=== PATIENT | female | born 1975 | race African-American/Black ===

== ENCOUNTER 2019-01-11 03:39 | Inpatient (IN) ==
--- NOTE | 2019-01-06 17:23 | EKG Report ---
Test Performed on : 01/06/2019 5:17:45 PM Test Reason : PAT Blood Pressure : / mmHG Vent. Rate : 064 BPM Atrial Rate : 064 BPM P-R Int : 142 ms QRS Dur : 084 ms QT Int : 376 ms P-R-T Axes : 063 084 059 degrees QTc Int : 387 ms Normal sinus rhythm. Normal ECG No previous ECGs available Unconfirmed Result
[2019-01-06 17:40] LABS: BASO# 0.01 X1000 (0.0-0.2); BASO% 0.3 % (0.0-0.8); EOS# 0.04 X1000 (0.0-0.7); EOS% 1.3 % (0.0-10.0); HEMATOCRIT 33.3 % (37.0-47.0); HEMOGLOBIN 10.8 g/dL (12.0-16.0); LYMPH# 1.08 X1000 (1.2-3.4); MCH 29.6 PG (27-31); MCHC 32.4 g/dL (33-37); MCV 91.2 FL (81-99); MONO# 0.28 X1000 (0.11-0.59); MONO% 9.3 % (1.7-9.3); MPV 9.4 FL (7.4-10.4); NEUT# 1.59 X1000 (1.4-6.5); NEUT% 53.1 % (42.2-75.2); PLT 273 X1000 (130-400); RBC 3.65 XMIL (4.2-5.4); RDW 15.3 % (11.5-14.5)
[2019-01-06 17:49] LABS: INR 1.1; PROTIME 14.3 Seconds (11.0-16.0)
[2019-01-06 17:50] LABS: PTT 30.6 Seconds (22.3-41.8)
[2019-01-06 17:54] LABS: HEMOGLOBIN A1C 5.1 % (4.8-6.0)
[2019-01-06 17:54] LABS: URINE SOURCE CLEAN CATCH
[2019-01-06 18:05] LABS: AGAP 12; ALBUMIN 4.4 g/dL (3.5-5.0); BUN 9 mg/dL (8-22); CALCIUM 9.4 mg/dL (8.8-10.2); CHLORIDE 106 mmol/L (98-107); COSMO 281; CREATININE 0.7 mg/dL (0.5-0.9); ESTIMATED GFR > 60; GLUCOSE 88 mg/dL (70-104); POTASSIUM 3.6 mmol/L (3.5-5.1); SODIUM 142 mmol/L (136-145); TCO2 24 mmol/L (25-35)
[2019-01-06 18:30] LABS: BILIRUBIN URINE NEGATIVE (NEGATIVE); BLOOD URINE NEGATIVE (NEGATIVE); COLOR YELLOW; GLUCOSE URINE NEGATIVE (NEGATIVE); KETONE URINE 40 mg/dL (NEGATIVE); LEUKOCYTES URINE NEGATIVE (NEGATIVE); NITRITE URINE NEGATIVE (NEGATIVE); PH URINE 7.5; PROTEIN URINE TRACE mg/dL (NEGATIVE); SP GRAVITY URINE 1.024; TURBIDITY URINE CLEAR (CLEAR); UROBILINOGEN URINE 3 mg/dL (NORMAL)
[2019-01-06 18:33] LABS: UR EPITHELIAL CELLS <10 /HPF (<10); URINE BACTERIA NEGATIVE /HPF; URINE RBC <10 /HPF (<10); URINE WBC <10 /HPF (<10)
[2019-01-06 18:34] LABS: RA TEST < 10 IU/mL (0-14); URIC ACID 2.6 mg/dL (2.4-5.7)
[2019-01-11] MEDS ORDERED: COLACE ONE (05:54)
[2019-01-11] MEDS ORDERED: PEPCID ONE (05:54)
[2019-01-11] MEDS ORDERED: LYRICA ONE (05:54)
[2019-01-11] MEDS ORDERED: REGLAN ONE (05:54)
[2019-01-11] MEDS ORDERED: CELEBREX ONE (05:55)
[2019-01-11] MEDS ORDERED: LR 1,000 ML ONE (05:55)
[2019-01-11] MEDS ORDERED: KEFZOL 1 GM/D5W 1 GM/50 ML IVPB ONE (05:55)
[2019-01-11] MEDS ORDERED: DIPRIVAN 1% ONE (06:31)
[2019-01-11] MEDS ORDERED: FENTANYL ONE (06:32)
[2019-01-11] MEDS ORDERED: OFIRMEV 1000 MG/ISOTONIC SOLN 1,000 MG/100 ML BOTTLE ONE (06:37)
[2019-01-11] MEDS ORDERED: TORADOL ONE (06:37)
[2019-01-11] MEDS ORDERED: DURAMORPH ONE (06:37)
[2019-01-11] MEDS ORDERED: EXPAREL 1.3% ONE (06:37)
[2019-01-11] MEDS ORDERED: SODIUM CHLORIDE 0.9% 10 ML ONE (06:37)
[2019-01-11] MEDS ORDERED: NORCURON ONE (06:37)
[2019-01-11] MEDS ORDERED: XYLOCAINE-MPF 2% ONE (06:37)
[2019-01-11] MEDS ORDERED: CYKLOKAPRON 1,000 MG/NS 1,000 MG/100 ML IVPB ONE (06:37)
[2019-01-11] MEDS ORDERED: MARCAINE 0.25% PF ONE (06:37)
[2019-01-11] MEDS ORDERED: SODIUM CHLORIDE 0.9% ONE (06:37)
[2019-01-11] MEDS ORDERED: DECADRON ONE (06:37)
[2019-01-11] MEDS ORDERED: ZOFRAN ONE (06:37)
[2019-01-11] MEDS ORDERED: QUELICIN (DOSE) ONE (06:37)
[2019-01-11] MEDS ORDERED: XYLOCAINE 2% JELLY ONE ×2 (06:38→07:55)
[2019-01-11 08:35] LABS: URINE SOURCE CATH
[2019-01-11 08:40] LABS: BILIRUBIN URINE NEGATIVE (NEGATIVE); BLOOD URINE NEGATIVE (NEGATIVE); COLOR STRAW; GLUCOSE URINE NEGATIVE (NEGATIVE); KETONE URINE NEGATIVE (NEGATIVE); LEUKOCYTES URINE NEGATIVE (NEGATIVE); NITRITE URINE NEGATIVE (NEGATIVE); PH URINE 6.5; PROTEIN URINE NEGATIVE (NEGATIVE); SP GRAVITY URINE 1.004; TURBIDITY URINE CLEAR (CLEAR); UR EPITHELIAL CELLS <10 /HPF (<10); URINE BACTERIA NEGATIVE /HPF; URINE RBC <10 /HPF (<10); URINE WBC <10 /HPF (<10); UROBILINOGEN URINE NORMAL (NORMAL)
[2019-01-11] MEDS ORDERED: ROBINUL ONE (09:06)
[2019-01-11] MEDS ORDERED: NEOSTIGMINE ONE ×2 (09:06)
[2019-01-11] MEDS: DILAUDID ONE ×6 (10:20→16:19)
[2019-01-11] MEDS: NS 1,000 ML ONE ×2 (10:30→16:18)
--- NOTE | 2019-01-11 10:41 | OPERATIVE NOTE ---
PROCEDURE DATE: 01/11/2019 PREOPERATIVE DIAGNOSIS: Left hip osteoarthritis. POSTOPERATIVE DIAGNOSIS: Left hip osteoarthritis. PROCEDURE PERFORMED: Left total hip arthroplasty. SURGEON: Dr. Tpi De La Rosa. ASSISTANTS: 1. Thelma Whitmore, nurse practitioner, whose assistance was needed for retraction and placement of implants. 2. Dante Coleman RN. ANESTHESIA: General endotracheal anesthesia. COMPLICATIONS: None. SPECIMENS: None. DRAINS: None. BLOOD LOSS: 150 mL. IMPLANTS: 1. Biomet G7 acetabular cup size 52 mm with an E-liner. 2. G7 acetabular E1 antioxidant size E liner for a 36 mm head. 3. A size 9 Taperloc femoral stem with a 36 mm Biolox Delta ceramic head. INDICATIONS FOR PROCEDURE: Ms. Romero is a 43-year-old lady who has been followed in the clinic for complaints of left hip pain. She has tried and failed conservative treatment modalities and wished to proceed with a total hip arthroplasty. Risks, benefits, and alternative therapies were discussed with the patient regarding surgery. Risks of surgery include, but are not limited to risks of bleeding, infection, damage to nerves and vessels around the area, continued pain following surgery, need for revision surgery. There are also risks of anesthesia including blood clot, stroke, heart attack, and even . The patient understands these risks. All questions were answered. Informed consent was obtained. PROCEDURE IN DETAIL: Ms. Romero was identified by wristband and greeted in the preop holding area on 01/11/2019. Her left lower extremity, which was the operative site, was marked with indelible ink per [facility] protocol. Following this, the patient was transferred back to the operating room for surgery. Upon entering the OR, she was transferred to the supine position onto a Skytron table. Once general endotracheal anesthesia was induced, the patient was transferred over to the [place] table in a supine position. The legs were placed in the well-padded boot holders. At this time, the left lower extremity was prepped and draped in routine sterile fashion. Formal time-out was performed, confirming correct patient, procedure, operative site, operative side, administration of preop antibiotics. Everyone was in agreement. Patient received 2 g of Ancef prior to incision. A 10 blade knife was used to make a standard 10 cm incision about 3 cm distal and 2 cm lateral to the ASIS. Knife was used to dissect through skin. Bovie cautery was then used to dissect through subcutaneous tissue down onto the tensor fascia muscle belly and fascia. Once this was identified and cleared off, a fresh knife was used to make a longitudinal incision through the tensor fascia. Anterior fascia was then elevated and the interval between sartorius and tensor was identified. At this time, a blunt Cobra was placed into the saddle of the superior femoral neck. A hemostat was then used to spread through the interval between the gluteus medius and vastus lateralis to identify the ascending circumflex vessels. Once these were identified, they were clamped and cauterized in routine fashion. Once this was done, we then placed a second blunt Cobra retractor along the inferior neck. The Bovie was then used to elevate pericapsular fat from the capsule. A bent Hohmann was then placed up under the indirect head of rectus onto the superior acetabular lip. At this time, a Santiago elevator was used to clean off the capsule. We had an excellent view of the hip capsule. Bovie cautery was then used to make an inverted T capsulotomy from the acetabulum lateral to the intertrochanteric line. Then #1 Vicryl tacking sutures were then placed in each corner of the capsular flaps to assist with closure later. We then proceeded with elevating capsule both inferiorly as well as superiorly off the femoral neck. At this time, the retractors were replaced intracapsular. We had good visualization of the femoral neck. A sagittal saw was used to make our femoral neck cut in routine fashion. Napkin ring technique was used to remove a slice of the femoral neck, followed by corkscrew to remove the femoral head. At this time, we then placed a sharp curved Hohmann over the posterior wall, a #7 bent Hohmann over the anterior-superior acetabulum, and a blunt Hohmann over the anterior aspect of the acetabulum just outside the transverse acetabular ligament. A curette and Bovie were used to remove remaining ligamentum from the condylar fossa. We then measured the femoral head on the back table which was found to be about 52 mm. We started reaming with a 46 mm reamer and medialized initially to the level of the medial acetabular wall. Once this was done, we then proceeded with reaming, 48, 50, 52 mm cup. We had good circumferential fit with the 52 mm cup and a 52 mm trial was thus placed. Fluoroscopy was brought in to confirm placement of the trial, which we were satisfied with. At this time, trial was removed and a G7, 52 mm cup was then opened on the back table and impacted in position. Again, fluoroscopy was brought in to confirm our version and abduction of our cup, which we were satisfied with. At this time, a neutral E1 polyethylene liner was opened and impacted in routine fashion. After this, we turned our attention to our femur. The femur was externally rotated and our superior capsular release was completed off the greater trochanter using Bovie cautery. Once we were done with this release, a bone hook was placed along the calcar and a two-prong retractor was placed over the greater trochanter. We then extended and adducted the leg, allowing the femur to present itself in the wound. At this time, a [employer] cutter was then used to remove the remaining lateral femoral neck. A canal finer was then used to enter the canal. We then began with sequential broaching starting with a size 4 and up to a size 9. A size 9 broach was found to have excellent fit with no toggle. At this time, a calcar planer was used to plane our femoral neck. A standard offset neck with an 0 ball was placed and the hip was reduced. We were happy with our placement of the stem intramedullary. At this time, we then dislocated the hip, removed our trial components, and copiously irrigated the hip. A size 9 Taperloc complete stem was opened on the back table and then inserted in a routine fashion. Again, it was found to seat appropriately. Once this was done, we again trialed a +0 head, which was found to be stable with range of motion. However, it did have a little bit of laxity with shucking of the hip. We thus opened a +3 Biolox ceramic femoral head. The final ceramic head was then impacted in place. The hip was reduced. Fluoroscopy was again brought in, confirming leg lengths which were almost identical with the operative leg being maybe 1 to 2 mm lengthened in order to gain stability. The hip was found to go through good range of motion with no signs of instability or impingement with terminal external rotation or internal rotation. At this time, we proceeded with injecting our Exparel cocktail along the posterior capsule, anterior capsule, tensor fascia, and sartorius muscle bellies. Once we were done with this, our subcutaneous injection was injected along the subcutaneous tissue. A #1 Vicryl suture was used for closure of our capsulotomy. We then proceeded with 0 Vicryl running locking suture for closure of our tensor fascia, followed by 2-0 Vicryl for subcutaneous tissue closure. Skin was closed with 4-0 Monocryl. Dermabond, Prineo dressing was then placed. At this time, Tegaderm island dressings were placed. Drapes were removed. The patient was transferred over to a hospital stretcher and taken to recovery in stable condition. There were no acute complications during the procedure. All sponge and sharp counts were correct at the conclusion of the procedure.
[2019-01-11] MEDS: PHENERGAN ONE ×2 (10:45→16:19)
--- NOTE | 2019-01-11 11:08 | Diag Imaging Result Doc PS360 ---
XRAY PELVIS W/HIP 2-3VW LT - 01/11/2019 INDICATION: Left Anterior Hip TECHNIQUE: Three views COMPARISON: None FINDINGS: There has been left total hip arthroplasty. Alignment is anatomic. No hardware fracture or loosening. IMPRESSION: No complication. Electronically signed by Anam Vences 01/11/2019 11:05 AM
[2019-01-11] MEDS ORDERED: OXY IR PO PRN (11:15)
[2019-01-11] MEDS ORDERED: ZOFRAN IV PRN (11:15)
[2019-01-11] MEDS ORDERED: AMBIEN PO PRN (11:15)
[2019-01-11] MEDS ORDERED: MORPHINE IV PRN ×2 (11:15)
[2019-01-11] MEDS ORDERED: ZOFRAN PO PRN (11:15)
[2019-01-11] MEDS ORDERED: MILK OF MAGNESIA PO PRN (11:15)
[2019-01-11] MEDS ORDERED: CYKLOKAPRON 1,000 MG in NS 100 ML IV ONE (13:00)
[2019-01-11] MEDS: TYLENOL PO SCH ×2 (13:56→18:51)
[2019-01-11] MEDS: ULTRAM PO SCH ×2 (13:56→18:51)
[2019-01-11] MEDS: KEFZOL 1 GM/D5W 1 GM/50 ML IVPB IV SCH ×2 (16:17→21:24)
[2019-01-11] MEDS: MORPHINE IV PRN ×3 (16:21→23:56)
[2019-01-11] MEDS: NS 1,000 ML IV SCH (16:21)
[2019-01-11] MEDS: OXY IR PO PRN (18:49)
[2019-01-11] MEDS: CELEBREX PO SCH (21:00)
[2019-01-11] MEDS ORDERED: CYMBALTA PO SCH (21:00)
[2019-01-11] MEDS: COLACE PO SCH (21:01)
[2019-01-11] MEDS: LYRICA PO SCH (21:01)
[2019-01-11] MEDS: VIMPAT PO SCH (21:23)
[2019-01-11] MEDS: TRILEPTAL PO SCH (21:23)
[2019-01-12] MEDS: NS 1,000 ML IV SCH (01:25)
[2019-01-12] MEDS: OXY IR PO PRN ×3 (01:57→10:36)
[2019-01-12] MEDS: KEFZOL 1 GM/D5W 1 GM/50 ML IVPB IV SCH (03:18)
[2019-01-12] MEDS: TYLENOL PO SCH ×2 (03:19→06:01)
[2019-01-12] MEDS: ULTRAM PO SCH ×2 (03:19→06:01)
[2019-01-12] MEDS ORDERED: LOVENOX SUBQ SCH (06:00)
[2019-01-12 06:44] LABS: HEMATOCRIT 24.8 % (37.0-47.0); HEMOGLOBIN 8.3 g/dL (12.0-16.0)
[2019-01-12 07:09] LABS: AGAP 11; BUN 5 mg/dL (8-22); CALCIUM 8.3 mg/dL (8.8-10.2); CHLORIDE 105 mmol/L (98-107); COSMO 273; CREATININE 0.6 mg/dL (0.5-0.9); ESTIMATED GFR > 60; GLUCOSE 93 mg/dL (70-104); POTASSIUM 3.3 mmol/L (3.5-5.1); SODIUM 138 mmol/L (136-145); TCO2 22 mmol/L (25-35)
[2019-01-12] MEDS ORDERED: COLACE PO SCH (09:00)
[2019-01-12] MEDS ORDERED: ASPIRIN PO SCH (09:00)
[2019-01-12] MEDS ORDERED: DECADRON IV ONE (09:00)
[2019-01-12] MEDS ORDERED: CELEBREX PO SCH (09:00)
[2019-01-12] MEDS ORDERED: PREGABALIN PO SCH (09:00)
[2019-01-12] MEDS ORDERED: PEPCID PO SCH (09:00)
--- NOTE | 2019-01-12 09:35 | ORTHOPAEDICS PROGRESS NOTE ---
DATE: 01/12/2019 SUBJECTIVE: No acute events overnight. Patient reports some pain in the hip, but otherwise doing well. She got up last night with a nurse and ambulated around the room. She is tolerating diet. She has no other complaints and is ready to go home. OBJECTIVE: Hematocrit is 25. Vital signs stable. Examination of left lower extremity shows surgical dressing to be clean, dry, and intact. Minimal swelling in the thigh. No fluctuance or drainage from the incision site. She is able to do straight leg raise. Motor is intact EHL, tibialis anterior, gastrocsoleus complex. Sensation intact to light touch L3-S1. Dorsalis pedis pulse palpable. IMAGING DATA: AP and lateral of the left hip were obtained in PACU yesterday demonstrating good position of hardware with no periprosthetic fractures or dislocations. ASSESSMENT: A 43-year-old female status post left total hip arthroplasty. PLAN: 1. Patient is to be weightbearing as tolerated left lower extremity. Anterior hip precautions. Physical therapy to mobilize and work on gait training. 2. Aspirin daily for deep venous thrombosis prophylaxis. 3. Ice left lower extremity as needed for pain. 4. Finish Ancef 24 hours of perioperative antibiotics. DISPOSITION: Plan on the patient being discharged home this afternoon after working with physical therapy. I will see her back in clinic in 10 to 14 days for wound check and x-rays.
[2019-01-12] MEDS: CELEBREX PO SCH (10:34)
[2019-01-12] MEDS: VIMPAT PO SCH (10:35)
[2019-01-12] MEDS: COLACE PO SCH (10:35)
[2019-01-12] MEDS: LYRICA PO SCH (10:35)
[2019-01-12] MEDS: TRILEPTAL PO SCH (10:35)
[2019-01-12] MEDS ORDERED: TRILEPTAL PO ONE (10:56)
[2019-01-12 11:57] VITALS: BP 96/44
[2019-01-12] MEDS ORDERED: TRILEPTAL PO SCH (21:00)
--- NOTE | 2019-01-13 13:41 | DISCHARGE SUMMARY ---
ADMISSION DATE: 01/11/2019 DISCHARGE DATE: 01/12/2019 ADMISSION DIAGNOSIS: Left hip osteoarthritis. DISCHARGE DIAGNOSIS: Left hip osteoarthritis. PROCEDURE: Left total hip arthroplasty. CONSULTATIONS: None. COMPLICATIONS: None. BRIEF HOSPITAL COURSE: Ms. Romero is a 43-year-old lady who has been followed in clinic for complaints of left hip pain. She has tried and failed conservative treatment modalities and wished to proceed with total joint arthroplasty. The risks, benefits, alternative therapies were discussed with the patient regarding surgery. All questions were answered. Informed consent was obtained. Patient presented to [facility] on 01/11/2019 for the above procedure. There were no acute complications during surgery. Following surgery, she was transferred up to the floor for recovery. She ambulated with physical therapy and walked around the room twice on day of surgery. She had no acute medical events overnight. On postoperative day 1, patient again ambulated with physical therapy walking over 250 feet on 2 separate occasions. Her pain was well controlled on p.o. pain medication. She was tolerating a diet and urinating voluntarily. She was discharged home on 01/12/2019. DISPOSITION: Discharged home. CONDITION: Stable. DISCHARGE MEDICATIONS: 1. Aspirin 325 mg daily. 2. Celebrex. 3. Tramadol. 4. Tylenol. 5. Oxycodone IR. 6. Zofran. 7. Colace. DISCHARGE INSTRUCTIONS: 1. Patient is to keep surgical dressing clean, dry, intact x1 day. Following this, she can remove the white [place] dressing and wash the Dermabond dressing with soap and water. No soaking in a bath tub. 2. Patient to take her aspirin for DVT prophylaxis as per instructions. 3. The patient is to work with physical therapy on mobilization. 4. The patient instructed to call the ER with any acute onset chest pain, shortness of breath, fever going to 101.5, drainage from surgical incision.
== END 2019-01-12 16:19 | disposition home or self-care (01) | DRG 470 ==
LOC: SURHOLD 03:39 → 4N 07:56
PROVIDERS: ADMIT Orthopaedic Surgery Sports Medicine; ATTEND Orthopaedic Surgery Sports Medicine